=== PATIENT | male | born 1975 | race Caucasian/White ===

== ENCOUNTER 2018-01-06 00:29 | Emergency (ER) | payer BC ==
[~2018-01-06] VITALS: Ht 175.3 cm; Wt 97.1 kg
[2018-01-06 00:31] VITALS: BP 126/82; Ht 175.3 cm; Wt 97.1 kg
== END 2018-01-06 01:22 | disposition home or self-care (01) ==
LOC: ED 00:29
DX: S05.01XA Injury of conjunctiva and corneal abrasion without foreign body, right eye, initial encounter (principal); X58.XXXA Exposure to other specified factors, initial encounter; Y93.89 Activity, other specified; Y92.89 Other specified places as the place of occurrence of the external cause; Y99.8 Other external cause status